=== PATIENT | female | born 1970 | race Caucasian/White ===

== ENCOUNTER 2017-03-10 19:06 | Emergency (ER) | payer SELFPAY ==
[~2017-03-10] VITALS: Ht 162.6 cm; Wt 81.6 kg
[~2017-03-10 19:06] MED LIST: ALB0.5V IH; AZIT250T5 PO; CEFD300C3 PO; CETI10CA PO; CIPR500T4 PO; DOXY100C2 PO; FLUT9.9S NS; HYDR1TAB66 PO; LORA1TAB59 PO; METH4TAB PO; MOME0.244 IH; MONT10TA21 PO; OXYC-12 PO; OXYC1TAB87 PO; PRD20T PO; PROVENTIL INHALER IH; RT-SYMBINH IH
[2017-03-10] MEDS ORDERED: RT-ALBUTEROL/IPRATROPIUM 3 ML (DUONEB) VIAL INH ONE (19:30)
[2017-03-10] MEDS ORDERED: RT-ALBUTEROL SULF 2.5 MG/3 ML PRE-MIX VIAL ONE (19:39)
[2017-03-10] MEDS ORDERED: RT-ALBUTEROL SULF 2.5 MG/3 ML PRE-MIX VIAL INH STA (19:43)
[2017-03-10 19:49] LABS: BASOPHILS % (AUTO) 0 % (0-10); EOSINOPHILS # (AUTO) 0.8 10^3/uL (0.0-0.3); EOSINOPHILS % (AUTO) 7 % (0-10); LYMPHOCYTES # (AUTO) 3.4 X 10^3 (1.0-4.0); LYMPHOCYTES % (AUTO) 30 % (12-44); MEAN CORPUSCULAR HEMOGLOBIN 29 PG (25-34); MEAN CORPUSCULAR HGB CONC 32 G/DL (32-36); MEAN CORPUSCULAR VOLUME 91 FL (80-99); MEAN PLATELET VOLUME 10.3 FL (7.4-10.4); MONOCYTES # (AUTO) 1.1 X 10^3 (0.0-1.0); MONOCYTES % (AUTO) 10 % (0-12); NEUTROPHILS % (AUTO) 54 % (42-75); PLATELET COUNT 304 10^3/uL (130-400); RED BLOOD COUNT 4.31 10^6/uL (4.35-5.85); RED CELL DISTRIBUTION WIDTH 14.2 % (10.0-14.5); WHITE BLOOD COUNT 11.3 10^3/uL (4.3-11.0)
--- NOTE | 2017-03-10 19:50 | ED General ---
General Chief Complaint: Abdominal/GI Problems Stated Complaint: NAUSEA Nursing Triage Note: pt ambulated to room. pt states she is feeling dizzy and lightheaded. pt states it feels like she has an inner ear infection. Pt states she has been feeling this way for months. no vomiting noted at this time. pt states her feet feel hot and her hands have been going numb. Nursing Sepsis Screen: No Definite Risk Source of Information: Patient Exam Limitations: No Limitations History of Present Illness Time Seen by Provider: 19:15 Initial Comments Here with diffuse complaints that include feeling dizzy and lightheaded and warmth to her face with watery eyes and runny nose. She also complains of nausea. Complains of bilateral leg warmth. Complains of burning sensation to the center of her chest with deep breathing. She is on Claritin for her allergies. Timing/Duration: 2-3 Days Severity: Moderate Associated Systoms: No Chest Pain, Cough, No Fever/Chills, Malaise, No Nausea/ Vomiting Allergies and Home Medications Allergies Coded Allergies: hydrocodone (Unverified Allergy, Unknown, 06/15/15) Home Medications Albuterol 2.5 Mg/0.5 Ml Nebu, 2.5 ML IH BID, (Reported) Budesonide/Formoterol Fumarate 1 Puff Puff, 2 PUFF IH BID, (Reported) Cefdinir 300 Mg Capsule, 300 MG PO BID, #30 Prescribed by: DIA HICKMAN on 06/03/16640 Ciprofloxacin HCl 500 Mg Tablet, 1 TAB PO BID, #20 (Reported) Fluticasone Propionate 9.9 Ml [place].susp, 2 SPRAYS NS BID, #1 Prescribed by: DIA HICKMAN on 06/03/16640 Loratadine/Pseudoephedrine 1 Each Tab.er.12h, 1 EACH PO BID, #30 Prescribed by: DIA HICKMAN on 06/03/16640 Methylprednisolone 4 Mg Tab.ds.pk, 4 MG PO UD, #1 Prescribed by: DIA HICKMAN on 06/03/16640 Montelukast Sodium 10 Mg Tablet, 10 MG PO DAILY, #30 Prescribed by: DIA HICKMAN on 06/03/16640 [Proventil Inhaler] , 2 PUFF IH DAILY PRN for SHORTNESS OF BREATH Prescribed by: CJ PETERSEN on 10/19/13 0348 Constitutional: see HPI, No chills, No fever EENTM: nose congestion, throat pain, No ear discharge Respiratory: cough, short of breath, wheezing Cardiovascular: see HPI, No edema, No palpitations Gastrointestinal: No abdominal pain, nausea, No vomiting Genitourinary: no symptoms reported Musculoskeletal: see HPI, muscle pain Skin: see HPI, No change in color All Other Systems Reviewed Negative Unless Noted: Yes Past Fxwwhxy-Fgipxt-Wtgztp Hx Patient Social History Alcohol Use: Denies Use Recreational Drug Use: No Smoking Status: Current Everyday Smoker Type Used: Cigarettes 2nd Hand Smoke Exposure: Yes Recent Foreign Travel: No Contact w/Someone Who Travel: No Recent Infectious Disease Expo: No Recent Hopitalizations: No Immunizations Up To Date Tetanus Booster (TDap): Less than 5yrs Date of Pneumonia Vaccine: Nov 01, 2012 Seasonal Allergies Seasonal Allergies: Yes Surgeries HX Surgeries: Yes ( x 4) Surgeries: Section, Orthopedic Respiratory Hx Respiratory Disorders: Yes Respiratory Disorders: Asthma, Chronic Bronchitis, COPD Cardiovascular Hx Cardiac Disorders: No Neurological Hx Neurological Disorders: No Reproductive System Hx Reproductive Disorders: No Genitourinary Hx Genitourinary Disorders: No Gastrointestinal Hx Gastrointestinal Disorders: No Musculoskeletal Hx Musculoskeletal Disorders: Yes (dislocated right knee 10/19/13) Endocrine Hx Endocrine Disorders: No HEENT HX ENT Disorders: No Cancer Hx Cancer: No Psychosocial Hx Psychiatric Problems: No Integumentary HX Skin/Integumentary Disorder: No Blood Transfusions Hx Blood Disorders: No Adverse Reaction to a Blood Tr: No Reviewed Nursing Assessment Reviewed/Agree w Nursing PMH: Yes Family Medical History Significant Family History: No Pertinent Family Hx Family Medial History: History of - respiratory disease (Emphysema) 03 FATHER, Onset:Unknown Physical Exam Vital Signs Vital Sign - Last 12Hours 03/10/17 19:15 Temp 98.5 Pulse 95 Resp 20 B/P (MAP) 185/101 Pulse Ox 98 O2 Delivery Room Air Capillary Refill : Less Than 3 Seconds General Appearance: No Apparent Distress, WD/WN HEENT: PERRL/EOMI, Pharynx Normal Neck: Non Tender, Supple Respiratory: No Respiratory Distress, Wheezing Cardiovascular: Regular Rate, Rhythm, No Murmur Gastrointestinal: Non Tender, Soft Back: Normal Inspection, No CVA Tenderness, No Vertebral Tenderness Extremity: Normal Range of Motion, Non Tender Neurologic/Psychiatric: Alert, Oriented x3 Skin: Normal Color, Warm/Dry Progress/Results/Core Measures Results/Orders Lab Results Laboratory Tests Test 03/10/17 19:38 Range/Units White Blood Count 11.3 H 4.3-11.0 10^3/uL Red Blood Count 4.31 L 4.35-5.85 10^6/uL Hemoglobin 12.6 11.5-16.0 G/DL Hematocrit 39 35-52 % Mean Corpuscular Volume 91 80-99 FL Mean Corpuscular Hemoglobin 29 25-34 PG Mean Corpuscular Hemoglobin Concent 32 32-36 G/DL Red Cell Distribution Width 14.2 10.0-14.5 % Platelet Count 304 130-400 10^3/uL Mean Platelet Volume 10.3 7.4-10.4 FL Neutrophils (%) (Auto) 54 42-75 % Lymphocytes (%) (Auto) 30 12-44 % Monocytes (%) (Auto) 10 0-12 % Eosinophils (%) (Auto) 7 0-10 % Basophils (%) (Auto) 0 0-10 % Neutrophils # (Auto) 6.0 1.8-7.8 X 10^3 Lymphocytes # (Auto) 3.4 1.0-4.0 X 10^3 Monocytes # (Auto) 1.1 H 0.0-1.0 X 10^3 Eosinophils # (Auto) 0.8 H 0.0-0.3 10^3/uL Basophils # (Auto) 0.0 0.0-0.1 10^3/uL D-Dimer 0.33 0.00-0.49 UG/ML Sodium Level 138 135-145 MMOL/L Potassium Level 3.8 3.6-5.0 MMOL/L Chloride Level 106 98-107 MMOL/L Carbon Dioxide Level 20 L 21-32 MMOL/L Anion Gap 12 5-14 MMOL/L Blood Urea Nitrogen 14 7-18 MG/DL Creatinine 0.88 0.60-1.30 MG/DL Estimat Glomerular Filtration Rate > 60 BUN/Creatinine Ratio 16 Glucose Level 110 H 70-105 MG/DL Calcium Level 8.9 8.5-10.1 MG/DL Total Bilirubin 0.3 0.1-1.0 MG/DL Aspartate Amino Transf (AST/SGOT) 14 5-34 U/L Alanine Aminotransferase (ALT/SGPT) 13 0-55 U/L Alkaline Phosphatase 70 40-136 U/L Troponin I < 0.30 <0.30 NG/ML C-Reactive Protein High Sensitivity 0.36 0.00-0.50 MG/DL Total Protein 6.6 6.4-8.2 G/DL Albumin 3.9 3.2-4.5 G/DL Thyroid Stimulating Hormone (TSH) 4.51 0.35-4.94 UIU/ML My Orders Orders - ANGELA SEALS MD Cbc With Automated Diff (03/10/17:) Comprehensive Metabolic Panel (03/10/17:) Hs C Reactive Protein (03/10/17) Fibrin Degradation Products (03/10/17) Thyroid Stimulating Hormone (03/10/17) Troponin I (03/10/17) Chest Pa/Lat (2 View) (03/10/17:) Saline Lock/Iv-Start (03/10/17:) Ekg Tracing (03/10/17:) Albuterol/Ipra Inhalation Soln (Duoneb I (03/10/17 19:30) Svn Sm Volume Nebulizer Rt-Rfs (03/10/17 19:27) Albuterol Pre-Mix Nebs (Rt) (Proventil P (03/10/17 19:43) Svn Sm Volume Nebulizer Rt-Rfs (03/10/17 19:43) Albuterol Pre-Mix Nebs (Rt) (Proventil P (03/10/17 19:39) Prednisone Tablet (Deltasone Tablet) (03/10/17 20:15) Medications Given in ED Current Medications Medications Dose Ordered Sig/Yahir Route Start Time Stop Time Status Last Admin Dose Admin Albuterol/ Ipratropium 3 ml ONCE ONCE INH 03/10/17 19:30 03/10/17 19:31 DC 03/10/17 19:38 3 ML Prednisone 40 mg ONCE ONCE PO 03/10/17 20:15 03/10/17 20:16 DC 03/10/17 20:17 40 MG Vital Signs/I&O Vital Sign - Last 12Hours 03/10/17 03/10/17 03/10/17 19:15 19:38 19:45 Temp 98.5 Pulse 95 Resp 20 B/P (MAP) 185/101 Pulse Ox 98 100 O2 Delivery Room Air Room Air Room Air Blood Pressure Mean: 129 Progress Note : Progress Note Seen and evaluated. IV, labs, chest x-ray, EKG, DuoNeb and albuterol nebulizer treatments given. Monitor patient. Prednisone 40 mg by mouth given. Chest x- ray, labs and EKG do not show any significant findings. This appears to be more COPD and upper respiratory infection related. This was discussed with the patient. She agrees. Discharged home with return precautions. Patient verbalize understanding instructions and agreement with plan. ECG Initial ECG Impression Date: Mar 10, 2017 Initial ECG Impression Time: 20:00 Initial ECG Rate: 87 Initial ECG Rhythm: Normal Sinus Initial ECG Impression: Normal Initial ECG Comparisson: No Previous ECG Available Comment Sinus rhythm with normal axis. No evidence of ST elevation [place]. No previous available for comparison. Interpreted by me. Diagnostic Imaging Diagonstic Imaging: Xray Plain Films/CT/US/NM/MRI: chest Comments VIA [facility]. [place], [place] NAME: DONN HIGH [facility] REC#: [id number] PT STATUS: REG ER : 1970 PHYSICIAN: ANGELA SEALS MD ADMIT DATE: 03/10/17/ER Draft Date of Exam:03/10/17 CHEST PA/LAT (2 VIEW) INDICATION: Fever and chills. COMPARISON: 06/15/2015 FINDINGS: Two views of the chest were obtained. Heart size is normal. The pulmonary vessels appear unremarkable. There is no pneumothorax, mediastinal widening or pleural fluid demonstrated. The lungs are clear. The osseous structures appear unremarkable. IMPRESSION: Negative chest Dictated on workstation # [id number] Dict: 03/10/171955 Trans: 03/10/171957 QUINTIN [id number] Interpreted by: NITA CASTRO DO Electronically signed by: Departure Impression Impression: Primary Impression: Upper respiratory infection Qualified Codes: J06.9 - Acute upper respiratory infection, unspecified Additional Impression: COPD exacerbation Disposition: 01 HOME, SELF-CARE Condition: Improved Departure-Patient Inst. Decision time for Depature: 20:57 Referrals: YADY HUERTAS MD (PCP/Family) Primary Care Physician Patient Instructions: Bacterial Upper Respiratory Infection, Adult (DC), Exacerbation of COPD (DC) Add. Discharge Instructions: All discharge instructions reviewed with patient and/or family. Voiced understanding. Take medications as directed. You may take ibuprofen as needed for discomfort. You may take Tylenol as well per package directions. You may use Tylenol PM at nighttime if needed for sleep and allergy symptoms. Do not exceed more than 4000 mg of Tylenol in 24 hours. Follow-up with your early this week for recheck and further evaluation as needed. Scripts Prednisone (Prednisone) 20 Mg Tab 40 MG PO DAILY, #10 TAB 0 Refills Prov: ANGELA SEALS MD 03/10/17 ANGELA SEALS MD Mar 10, 2017 19:50
--- NOTE | 2017-03-10 19:58 | Diagnostic Imaging Report ---
INDICATION: Fever and chills. COMPARISON: 06/15/2015 FINDINGS: Two views of the chest were obtained. Heart size is normal. The pulmonary vessels appear unremarkable. There is no pneumothorax, mediastinal widening or pleural fluid demonstrated. The lungs are clear. The osseous structures appear unremarkable. IMPRESSION: Negative chest Dictated by: Dictated on workstation # [id number]
[2017-03-10 20:06] LABS: ALANINE AMINOTRANSFERASE 13 U/L (0-55); ALBUMIN 3.9 G/DL (3.2-4.5); ANION GAP 12 MMOL/L (5-14); ASPARTATE AMINO TRANSFERASE 14 U/L (5-34); BILIRUBIN,TOTAL 0.3 MG/DL (0.1-1.0); BLOOD UREA NITROGEN 14 MG/DL (7-18); BUN/CREATININE RATIO 16; CALCIUM 8.9 MG/DL (8.5-10.1); CARBON DIOXIDE 20 MMOL/L (21-32); CHLORIDE 106 MMOL/L (98-107); CREATININE SERUM 0.88 MG/DL (0.60-1.30); GFR ESTIMATED > 60; GLUCOSE 110 MG/DL (70-105); POTASSIUM 3.8 MMOL/L (3.6-5.0); SODIUM 138 MMOL/L (135-145); TOTAL PROTEIN 6.6 G/DL (6.4-8.2); hs C REACTIVE PROTEIN 0.36 MG/DL (0.00-0.50)
[2017-03-10] MEDS ORDERED: predniSONE 20 MG TAB PO ONE (20:15)
[2017-03-10 20:26] LABS: THYROID STIMULATING HORMONE 4.51 UIU/ML (0.35-4.94); TROPONIN I < 0.30 NG/ML (<0.30)
[2017-03-10] MEDS ORDERED: PRD20T PO (20:58)
[2017-03-10 21:13] VITALS: BP 155/86
== END 2017-03-10 21:13 | disposition home or self-care (01) ==
LOC: EDUNIT# 19:06 → ER 19:08
DX: J06.9 Acute upper respiratory infection, unspecified (principal); J44.1 Chronic obstructive pulmonary disease with (acute) exacerbation; J45.909 Unspecified asthma, uncomplicated; F17.210 Nicotine dependence, cigarettes, uncomplicated
CPT/HCPCS: 36415; 71020; 80053; 84443; 84484; 85025; 85379; 86141; 93005; 94640

== ENCOUNTER 2021-07-01 20:10 | Emergency (ER) | payer SELFPAY ==
[~2021-07-01] VITALS: Ht 160 cm; Wt 77.0 kg
[~2021-07-01 20:10] MED LIST changes: +AZIT250T12 PO; -AZIT250T5 PO; -CIPR500T4 PO; +CIPR500T5 PO
[2021-07-01] MEDS ORDERED: RT-ALBUTEROL/IPRATROPIUM 3 ML (DUONEB) VIAL ONE (20:50)
[2021-07-01] MEDS ORDERED: RT-ALBUTEROL SULF 2.5 MG/3 ML PRE-MIX VIAL ONE (20:52)
[2021-07-01] MEDS ORDERED: RT-ALBUTEROL/IPRATROPIUM 3 ML (DUONEB) VIAL INH ONE (21:00)
[2021-07-01 21:05] LABS: BASOPHILS # (AUTO) 0.1 10^3/uL (0.0-0.1); BASOPHILS % (AUTO) 1 % (0-10); EOSINOPHILS % (AUTO) 10 % (0-10); HEMATOCRIT 45 % (35-52); HEMOGLOBIN 14.8 g/dL (11.5-16.0); LYMPHOCYTES # (AUTO) 3.1 10^3/uL (1.0-4.0); LYMPHOCYTES % (AUTO) 30 % (12-44); MEAN CORPUSCULAR HEMOGLOBIN 32 pg (25-34); MEAN CORPUSCULAR HGB CONC 33 g/dL (32-36); MEAN CORPUSCULAR VOLUME 96 fL (80-99); MEAN PLATELET VOLUME 10.2 fL (9.0-12.2); MONOCYTES # (AUTO) 0.8 10^3/uL (0.0-1.0); MONOCYTES % (AUTO) 7 % (0-12); NEUTROPHILS # (AUTO) 5.4 10^3/uL (1.8-7.8); NEUTROPHILS % (AUTO) 52 % (42-75); PLATELET COUNT 251 10^3/uL (130-400); WHITE BLOOD COUNT 10.3 10^3/uL (4.3-11.0)
--- NOTE | 2021-07-01 21:06 | ED Dyspnea ---
General Stated Complaint: SOB, HEADACHE Source of Information: Patient Exam Limitations: No Limitations (HUBERT HARPER APRN) History of Present Illness Date Seen by Provider: Jul 01, 2021 Time Seen by Provider: 20:40 Initial Comments To ER with shortness of breath getting worse over the past few days. She has had this for several weeks. She has known asthma and COPD. She does not smoke. She is not oxygen dependent at home. No fevers chills nausea vomiting or other systemic symptoms. 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 Does not have a primary care provider. No recent medication use such as prednisone or antibiotics. She states that typically she can control these flareups of asthma at home and has not had to come to the emergency room for this reason for a couple of years. She has had both Covid vaccinations, Moderna brand. She gets tested at work for Covid weekly and was negative on Sunday of this week. Timing/Duration: Increasing Severity: Moderate Prior Episodes/Possible Cause: No Prior Episodes Associated Symptoms: Wheezing (HUBERT HARPER APRN) Allergies and Home Medications Allergies Coded Allergies: hydrocodone (Unverified Allergy, Unknown, 06/15/15) Patient Home Medication List Home Medication List Reviewed: Yes (HUBERT HARPER APRN) Albuterol (Proventil 0.5% Rt) 2.5 Mg/0.5 Ml Nebu, 2.5 ML IH BID, (Reported) Entered as Reported by: PARESH VICTORIA on 08/14/10 2333 Albuterol Sulfate (Albuterol Sulfate) 2.5 Mg/3 Ml Vial.neb, 2.5 MG INH Q4H PRN for WHEEZING Prescribed by: HUBERT HARPER on 07/01/21 2148 Budesonide/Formoterol Fumarate (Symbicort Common Canister) 1 Puff Puff, 2 PUFF IH BID, (Reported) Entered as Reported by: CJ PETERSEN on 10/19/13 0347 Cefdinir (Cefdinir) 300 Mg Capsule, 300 MG PO BID Prescribed by: DIA HICKMAN on 06/03/16 0641 Ciprofloxacin HCl (Ciprofloxacin HCl) 500 Mg Tablet, 1 TAB PO BID, (Reported) Entered as Reported by: YOGESH HOPSON on 06/03/16 0620 Fluticasone Propionate (Flonase Allergy Relief) 9.9 Ml [place].susp, 2 SPRAYS NS BID Prescribed by: DIA HICKMAN on 06/03/16640 Loratadine/Pseudoephedrine (Claritin-D 12 Hour Tablet) 1 Each Tab.er.12h, 1 EACH PO BID Prescribed by: DIA HICKMAN on 06/03/16640 Methylprednisolone (Medrol) 4 Mg Tab.ds.pk, 4 MG PO UD Prescribed by: DIA HICKMAN on 06/03/16640 Montelukast Sodium (Singulair) 10 Mg Tablet, 10 MG PO DAILY Prescribed by: DIA HICKMAN on 06/03/16640 Prednisone (Prednisone) 20 Mg Tab, 40 MG PO DAILY Prescribed by: ANGELA SEALS on 03/10/172057 Prednisone (Prednisone) 20 Mg Tab, 40 MG PO DAILY Prescribed by: HUBERT HARPER on 07/01/21 214 [Proventil Inhaler] , 2 PUFF IH DAILY PRN for SHORTNESS OF BREATH Prescribed by: CJ PETERSEN on 10/19/13 0348 Review of Systems Review of Systems Constitutional: see HPI EENTM: see HPI Respiratory: see HPI, cough, short of breath, wheezing Cardiovascular: no symptoms reported Genitourinary: no symptoms reported Musculoskeletal: no symptoms reported Skin: no symptoms reported Psychiatric/Neurological: No Symptoms Reported (HUBERT HARPER APRN) Past Jnvufep-Zupjjx-Dhlgui Hx Immunizations Up To Date Tetanus Booster (TDap): Less than 5yrs (HUBERT HARPER APRN) Seasonal Allergies Seasonal Allergies: Yes (HUBERT HARPER APRN) Past Medical History Surgeries: Yes ( x 4) Section, Orthopedic Respiratory: Yes Asthma, Chronic Bronchitis, COPD Currently Using CPAP: No Currently Using BIPAP: No Cardiac: No Neurological: No Reproductive Disorders: No Genitourinary: No Gastrointestinal: No Musculoskeletal: Yes (dislocated right knee 10/19/13) Endocrine: No HEENT: No Cancer: No Psychosocial: No Integumentary: No Blood Disorders: No Adverse Reaction/Blood Tranf: No (HUBERT HARPER APRN) Family Medical History History of - respiratory disease (Emphysema) 03 FATHER, Onset:Unknown No Pertinent Family Hx (HUBERT HARPER APRN) Physical Exam Vital Signs Vital Signs - First Documented 07/01/21 20:41 Temp 36.4 Pulse 105 Resp 24 B/P (MAP) 187/122 (143) Pulse Ox 90 O2 Delivery Room Air (DIA HICKMAN DO) Vital Signs Capillary Refill : (HUBERT HARPER APRN) Height, Weight, BMI Height: 5'4.00" Weight: 180lbs. 0.0oz. 81.103516pg; BMI Method:Stated General Appearance: No Apparent Distress, WD/WN Respiratory: No Respiratory Distress, Decreased Breath Sounds, Wheezing, Other (90 to 93% on room air) Cardiovascular: Regular Rate, Rhythm, Normal Peripheral Pulses Peripheral Pulses: 0 Carotid (R), 0 Carotid (L), 0 Femoral (R), 0 Femoral (L), 0 Dorsalis Pedis (R), 0 Left Dors-Pedis (L), 0 Radial Pulses (R), 0 Radial Pu lses (L) Extremity: Normal Capillary Refill, Normal Inspection Neurologic/Psychiatric: Alert, Oriented x3 Skin: Normal Color, Warm/Dry (HUBERT HARPER APRN) Progress/Results/Core Measures Results/Orders Lab Results Laboratory Tests Test 07/01/21 20:50 Range/Units White Blood Count 10.3 4.3-11.0 10^3/uL Red Blood Count 4.70 3.80-5.11 10^6/uL Hemoglobin 14.8 11.5-16.0 g/dL Hematocrit 45 35-52 % Mean Corpuscular Volume 96 80-99 fL Mean Corpuscular Hemoglobin 32 25-34 pg Mean Corpuscular Hemoglobin Concent 33 32-36 g/dL Red Cell Distribution Width 13.4 10.0-14.5 % Platelet Count 251 130-400 10^3/uL Mean Platelet Volume 10.2 9.0-12.2 fL Immature Granulocyte % (Auto) 0 % Neutrophils (%) (Auto) 52 42-75 % Lymphocytes (%) (Auto) 30 12-44 % Monocytes (%) (Auto) 7 0-12 % Eosinophils (%) (Auto) 10 0-10 % Basophils (%) (Auto) 1 0-10 % Neutrophils # (Auto) 5.4 1.8-7.8 10^3/uL Lymphocytes # (Auto) 3.1 1.0-4.0 10^3/uL Monocytes # (Auto) 0.8 0.0-1.0 10^3/uL Eosinophils # (Auto) 1.0 H 0.0-0.3 10^3/uL Basophils # (Auto) 0.1 0.0-0.1 10^3/uL Immature Granulocyte # (Auto) 0.0 0.0-0.1 10^3/uL Blood Gas Puncture Site LEFT RADIAL Blood Gas Patient Temperature 98.0 Arterial Blood pH 7.39 7.37-7.43 Arterial Blood Partial Pressure CO2 41 35-45 MMHG Arterial Blood Partial Pressure O2 71 L 79-93 MMHG Arterial Blood HCO3 24 23-27 MMOL/L Arterial Blood Total CO2 25.5 21.0-31.0 MMOL/L Arterial Blood Oxygen Saturation 94 94-100 % Arterial Blood Base Excess -0.2 -2.5-2.5 MMOL/L Jesse Test YES-POS Blood Gas Ventilator Setting NO Blood Gas Inspired Oxygen NOT INDICATED Sodium Level 138 135-145 MMOL/L Potassium Level 4.2 3.6-5.0 MMOL/L Chloride Level 108 H 98-107 MMOL/L Carbon Dioxide Level 21 21-32 MMOL/L Anion Gap 9 5-14 MMOL/L Blood Urea Nitrogen 11 7-18 MG/DL Creatinine 0.80 0.60-1.30 MG/DL Estimat Glomerular Filtration Rate 76 BUN/Creatinine Ratio 14 Glucose Level 93 70-105 MG/DL Calcium Level 9.4 8.5-10.1 MG/DL Corrected Calcium 9.4 8.5-10.1 MG/DL Total Bilirubin 0.2 0.1-1.0 MG/DL Aspartate Amino Transf (AST/SGOT) 22 5-34 U/L Alanine Aminotransferase (ALT/SGPT) 21 0-55 U/L Alkaline Phosphatase 66 40-136 U/L B-Type Natriuretic Peptide < 10.0 <100.0 PG/ML Total Protein 6.8 6.4-8.2 GM/DL Albumin 4.0 3.2-4.5 GM/DL SARS-CoV-2 RNA (RT-PCR) Not Detected Not Detecte (DIA HICKMAN DO) Medications Given in ED Current Medications Medications Dose Ordered Sig/Yahir Route Start Time Stop Time Status Last Admin Dose Admin Albuterol Sulfate 10 mg ONCE ONCE INH 07/01/21 21:15 07/01/21 21:16 DC 07/01/21 21:18 10 MG Albuterol/ Ipratropium 3 ml ONCE ONCE INH 07/01/21 21:00 07/01/21 21:01 DC 07/01/21 21:18 3 ML Methylprednisolone Sodium Succinate 125 mg ONCE ONCE IVP 07/01/21 21:15 07/01/21 21:16 DC 07/01/21 21:14 125 MG (DIA HICKMAN DO) Vital Signs/I&O 07/01/21 07/01/21 20:41 22:13 Temp 36.4 Pulse 105 102 Resp 24 20 B/P (MAP) 187/122 (143) 139/94 Pulse Ox 90 97 O2 Delivery Room Air Room Air (DIA HICKMAN DO) Departure Communication (Admissions) 4-states that she is feeling much better, her headache is gone and she feels as though she can breathe easier. Her lung sounds remain diminished with faint wheezing. Her oxygen is 94% on room air with normal respiratory rate and effort. We will put her on some prednisone and more albuterol at home. She has a machine but she believes her albuterol is . (HUBERT HARPER APRN) Impression Primary Impression: Asthma exacerbation Disposition: HOME, SELF-CARE Condition: Stable Departure-Patient Inst. Decision time for Depature: 21:46 (HUBERT HARPER APRN) Referrals: YADY HUERTAS MD (PCP/Family) Primary Care Physician Patient Instructions: Asthma in Adults Scripts Albuterol Sulfate (Albuterol Sulfate) 2.5 Mg/3 Ml Vial.neb 2.5 MG INH Q4H PRN for WHEEZING, #50 EA 1 Refill Prov: HUBERT HARPER APRN 07/01/21 Prednisone (Prednisone) 20 Mg Tab 40 MG PO DAILY, #8 TAB 0 Refills Prov: HUBERT HARPER APRN 07/01/21 ATTENDING PHYSICIAN NOTE: I WAS PHYSICALLY PRESENT ER PHYSICIAN WHEN THIS PATIENT WAS IN ER, BUT I WAS NOT INVOLVED IN DECISION MAKING OR ANY CARE OF THIS PATIENT. (DIA HICKMAN DO) HUBERT HARPER APRN Jul 01, 2021 21:05 DIA HICKMAN DO Jul 02, 2021 02:03
[2021-07-01 21:07] LABS: ABG BASE EXCESS -0.2 MMOL/L (-2.5-2.5); ABG OXYGEN SATURATION 94 % (94-100); ABG PCO2 41 MMHG (35-45); ABG PH 7.39 (7.37-7.43); ABG PO2 71 MMHG (79-93); ABG TCO2 25.5 MMOL/L (21.0-31.0)
[2021-07-01 21:10] LABS: ALLENS TEST YES-POS; INSPIRED O2 NOT INDICATED; VENTILATOR NO
[2021-07-01] MEDS ORDERED: methylPREDNISolone 125 MG (Solu-MEDROL) VIAL IVP ONE (21:15)
[2021-07-01] MEDS ORDERED: RT-ALBUTEROL SULF 2.5 MG/3 ML PRE-MIX VIAL INH ONE (21:15)
[2021-07-01 21:21] LABS: POTASSIUM 4.2 MMOL/L (3.6-5.0)
[2021-07-01 21:22] LABS: CALCIUM 9.4 MG/DL (8.5-10.1)
[2021-07-01 21:23] LABS: TOTAL PROTEIN 6.8 GM/DL (6.4-8.2)
[2021-07-01 21:25] LABS: BILIRUBIN,TOTAL 0.2 MG/DL (0.1-1.0)
[2021-07-01 21:27] LABS: CREATININE SERUM 0.8 MG/DL (0.60-1.30)
[2021-07-01] MEDS ORDERED: PRD20T PO (21:48)
[2021-07-01] MEDS ORDERED: ALBU2.5V4 INH (21:48)
[2021-07-01] MEDS ORDERED: RX-ALBUTEROL NEB 2.5 MG/3 ML PACK #5 IH STA (21:50)
[2021-07-01 22:13] VITALS: BP 139/94
== END 2021-07-01 22:13 | disposition home or self-care (01) ==
LOC: EDUNIT# 20:10 → ER 20:13
DX: J45.901 Unspecified asthma with (acute) exacerbation (principal); Z20.822 Contact with and (suspected) exposure to COVID-19; Z79.52 Long term (current) use of systemic steroids
CPT/HCPCS: 36415; 80053; 82805; 83880; 85025; 87636

== ENCOUNTER 2021-12-24 02:01 | Emergency (ER) | payer OTHER ==
[~2021-12-24] VITALS: Ht 160 cm; Wt 77.6 kg
[~2021-12-24 02:01] MED LIST changes: +ALBU2.5V4 INH
[2021-12-24 02:54] LABS: BASOPHILS # (AUTO) 0.1 10^3/uL (0.0-0.1); BASOPHILS % (AUTO) 1 % (0-10); EOSINOPHILS # (AUTO) 0.6 10^3/uL (0.0-0.3); EOSINOPHILS % (AUTO) 5 % (0-10); HEMATOCRIT 46 % (35-52); HEMOGLOBIN 15.4 g/dL (11.5-16.0); LYMPHOCYTES # (AUTO) 2.3 10^3/uL (1.0-4.0); LYMPHOCYTES % (AUTO) 18 % (12-44); MEAN CORPUSCULAR HEMOGLOBIN 32 pg (25-34); MEAN CORPUSCULAR HGB CONC 33 g/dL (32-36); MEAN CORPUSCULAR VOLUME 95 fL (80-99); MEAN PLATELET VOLUME 10.1 fL (9.0-12.2); MONOCYTES % (AUTO) 7 % (0-12); NEUTROPHILS # (AUTO) 9.1 10^3/uL (1.8-7.8); NEUTROPHILS % (AUTO) 70 % (42-75); PLATELET COUNT 282 10^3/uL (130-400); WHITE BLOOD COUNT 13.1 10^3/uL (4.3-11.0)
[2021-12-24 03:05] LABS: ALBUMIN 4.2 GM/DL (3.2-4.5); CHLORIDE 106 MMOL/L (98-107); INR 0.9 (0.8-1.4); PROTHROMBIN TIME PATIENT 12.9 SEC (12.2-14.7); SODIUM 140 MMOL/L (135-145)
[2021-12-24 03:06] LABS: AMYLASE 51 U/L (25-125)
[2021-12-24 03:07] LABS: CALCIUM 9.5 MG/DL (8.5-10.1)
[2021-12-24 03:08] LABS: GLUCOSE 115 MG/DL (70-105); TOTAL PROTEIN 6.8 GM/DL (6.4-8.2)
[2021-12-24 03:09] LABS: CARBON DIOXIDE 22 MMOL/L (21-32)
[2021-12-24 03:10] LABS: BILIRUBIN,TOTAL 0.2 MG/DL (0.1-1.0)
[2021-12-24 03:11] LABS: ALKALINE PHOSPHATASE 79 U/L (40-136)
[2021-12-24 03:12] LABS: CREATININE SERUM 0.87 MG/DL (0.60-1.30); GFR ESTIMATED 82
[2021-12-24 03:13] LABS: BUN/CREATININE RATIO 14
[2021-12-24 03:14] LABS: ALANINE AMINOTRANSFERASE 18 U/L (0-55)
[2021-12-24 03:15] LABS: LIPASE 20 U/L (8-78)
[2021-12-24] MEDS ORDERED: ONDANSETRON 4 MG/2 ML (SDV) Z0FRAN IVP ONE (03:45)
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
[2021-12-24] MEDS ORDERED: IOHEXOL 350 MG/ML 100 ML (OMNIPAQUE 350) VIAL IV ONE (04:30)
[2021-12-24] MEDS ORDERED: NS 100 ML (IVPB) BAG IV ONE (04:30)
[2021-12-24] MEDS ORDERED: CATHETER FLUSH 10 ML SYR IV PRN (04:30)
[2021-12-24 04:52] LABS: BILIRUBIN,URINE NEGATIVE (NEGATIVE); CLARITY,URINE CLEAR; COLOR,URINE YELLOW; GLUCOSE, URINE (UA) NEGATIVE (NEGATIVE); KETONES,URINE NEGATIVE (NEGATIVE); LEUKOCYTE ESTERASE ,URINE NEGATIVE (NEGATIVE); NITRITE,URINE NEGATIVE (NEGATIVE); PROTEIN,URINE NEGATIVE (NEGATIVE)
[2021-12-24 04:58] LABS: BACTERIA,URINE TRACE /HPF; RBC,URINE 0-2 /HPF; WBC,URINE 0-2 /HPF
[2021-12-24 05:04] LABS: AMPHETAMINE SCREEN, URINE NEGATIVE (NEGATIVE); BARBITURATE SCREEN URINE NEGATIVE (NEGATIVE); BENZODIAZEPINES SCREEN URINE NEGATIVE (NEGATIVE); CANNABINOID SCREEN, URINE POSITIVE (NEGATIVE); COCAINE SCREEN URINE NEGATIVE (NEGATIVE); METHADONE STAT NEGATIVE (NEGATIVE); METHAMPHETAMINE SCREEN URINE S NEGATIVE (NEGATIVE); OPIATE SCREEN URINE NEGATIVE (NEGATIVE); OXYCODONE STAT NEGATIVE (NEGATIVE); PROPOXYPHENE STAT NEGATIVE (NEGATIVE); TRICYCLIC ANTIDEPRESSANTS SCRE NEGATIVE (NEGATIVE)
--- NOTE | 2021-12-24 05:20 | Diagnostic Imaging Report ---
KNEE, LEFT, 3 VIEWS INDICATION: Knee pain COMPARISON: None available. TECHNIQUE: 3 views left knee FINDINGS: No fracture. Alignment is normal. No knee joint effusion, mineralized loose bodies or radiopaque foreign body. IMPRESSION: No acute osseous abnormality. Dictated by: Dictated on workstation # [id number]
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
[2021-12-24] MEDS ORDERED: CYCL10TA25 PO (05:35)
[2021-12-24] MEDS ORDERED: NAPR500T8 PO (05:35)
[2021-12-24 05:37] VITALS: BP 134/91
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
== END 2021-12-24 05:40 | disposition home or self-care (01) ==
LOC: EDUNIT# 02:01 → ER 02:05
DX: S06.0X9A Concussion with loss of consciousness of unspecified duration, initial encounter (principal); S16.1XXA Strain of muscle, fascia and tendon at neck level, initial encounter; R07.89 Other chest pain; M25.562 Pain in left knee; F17.210 Nicotine dependence, cigarettes, uncomplicated; V49.40XA Driver injured in collision with unspecified motor vehicles in traffic accident, initial encounter
CPT/HCPCS: 70450; 71045; 71260; 72125; 72128; 72131; 72170; 73562; 74177; 80053; 80306; 81000; 82150; 83690; 84703; 85025; 85610; 85730; 99284; G0480; 36415; 80320

== ENCOUNTER 2022-03-26 13:40 | Emergency (ER) | payer SELFPAY ==
[~2022-03-26] VITALS: Ht 157 cm; Wt 72.0 kg
[~2022-03-26 13:40] MED LIST changes: +CYCL10TA25 PO; +NAPR500T8 PO
[2022-03-26 14:08] LABS: BASOPHILS # (AUTO) 0.1 10^3/uL (0.0-0.1); BASOPHILS % (AUTO) 1 % (0-10); EOSINOPHILS # (AUTO) 1.1 10^3/uL (0.0-0.3); EOSINOPHILS % (AUTO) 9 % (0-10); HEMATOCRIT 46 % (35-52); HEMOGLOBIN 15.7 g/dL (11.5-16.0); LYMPHOCYTES # (AUTO) 2.5 10^3/uL (1.0-4.0); LYMPHOCYTES % (AUTO) 21 % (12-44); MEAN CORPUSCULAR HEMOGLOBIN 32 pg (25-34); MEAN CORPUSCULAR HGB CONC 34 g/dL (32-36); MEAN CORPUSCULAR VOLUME 95 fL (80-99); MEAN PLATELET VOLUME 10.1 fL (9.0-12.2); MONOCYTES # (AUTO) 0.6 10^3/uL (0.0-1.0); MONOCYTES % (AUTO) 5 % (0-12); NEUTROPHILS # (AUTO) 7.6 10^3/uL (1.8-7.8); NEUTROPHILS % (AUTO) 64 % (42-75); PLATELET COUNT 296 10^3/uL (130-400)
[2022-03-26] MEDS ORDERED: RT-ALBUTEROL/IPRATROPIUM 3 ML (DUONEB) VIAL INH ONE (14:15)
[2022-03-26] MEDS ORDERED: methylPREDNISolone 125 MG (Solu-MEDROL) VIAL IVP ONE (14:15)
[2022-03-26 14:20] LABS: ALBUMIN 4.1 GM/DL (3.2-4.5); POTASSIUM 4.2 MMOL/L (3.6-5.0)
--- NOTE | 2022-03-26 14:20 | ED Cough/URI ---
General Chief Complaint: Respiratory Problems Stated Complaint: HX COPD AND ASTHMA/SOB/FEVER Source: patient Exam Limitations: no limitations (ELINA AGUAYO) History of Present Illness Date Seen by Provider: Mar 26, 2022 Time Seen by Provider: 14:17 Initial Comments Patient is a 51 year old with asthma/copd that presents for SOB. She states she has been having symptoms on and off for over a month and states she is worse when she wakes up. Right now she states she does not have "any symptoms" but earlier she was very short of breath. She did use her inhaler, and on March 08 she was prescribed Doxycycline, prednisone and zyrtec for symptomatic relief from urgent care. She denies chest pain, weakness, vomiting. Severity/Quality: moderate Associated Symptoms: cough (ELINA AGUAYO) Allergies and Home Medications Allergies Coded Allergies: hydrocodone (Unverified Allergy, Unknown, 06/15/15) Patient Home Medication List Home Medication List Reviewed: Yes (ELINA AGUAYO) Albuterol Sulfate (Proair Hfa) 1 Puff Puff, 2 PUFF IH Q4H Prescribed by: Milan Aguayo on 03/26/22 1519 Cyclobenzaprine HCl (Cyclobenzaprine HCl) 10 Mg Tablet, 10 MG PO Q8H PRN for SPASMS Prescribed by: DIA HICKMAN on 12/24/21 0535 Naproxen (Naproxen) 500 Mg Tablet.dr, 500 MG PO BID Prescribed by: DIA HICKMAN on 12/24/21 0535 Prednisone (Prednisone) 20 Mg Tab, 20 MG PO BID Prescribed by: Milan Aguayo on 03/26/22 1519 Review of Systems Review of Systems Constitutional: malaise EENTM: no symptoms reported Respiratory: cough, short of breath Cardiovascular: no symptoms reported Gastrointestinal: no symptoms reported Genitourinary: no symptoms reported Musculoskeletal: no symptoms reported Skin: no symptoms reported (ELINA AGUAYO) Past Ekpsacy-Rhefzz-Jtdudq Hx Patient Social History Tobacco Use?: No Use of E-Cig and/or Vaping dev: No Substance use?: No Alcohol Use?: No Pt feels they are or have been: No (ELINA AGUAYO) Immunizations Up To Date Tetanus Booster (TDap): Less than 5yrs First/Initial COVID19 Vaccinat: 2020 Second COVID19 Vaccination Jose Carlos: 2020 (ELINA AGUAYO) Seasonal Allergies Seasonal Allergies: Yes (ELINA AGUAYO) Past Medical History Surgery/Hospitalization HX: RT KNEE REPLACEMENT, TUBAL LIGATION, C SECTION X4 COPD, ASTHMA (SHE THINKS) Surgeries: Yes ( x 4) Section, Orthopedic, Tubal Ligation Respiratory: Yes Asthma, Chronic Bronchitis, COPD Currently Using CPAP: No Currently Using BIPAP: No Cardiac: No Neurological: No Reproductive Disorders: No Genitourinary: No Gastrointestinal: No Musculoskeletal: Yes (dislocated right knee 10/19/13) Endocrine: No HEENT: No Cancer: No Psychosocial: No Integumentary: No Blood Disorders: No Adverse Reaction/Blood Tranf: No (ELINA AGUAYO) Family Medical History History of - respiratory disease (Emphysema) 03 FATHER, Onset:Unknown No Pertinent Family Hx SOCIAL HISTORY: -SMOKES 1 PPD -DENIES ETOH USE -DENIES DRUG USE PAST SURGICAL HISTORY: - X 4 -BILATERAL TUBAL LIGATION -DENTAL SURGERY -RIGHT KNEE SCOPE/ACD AND MEDIAL MENISCUS REPAIR 11/[address] PADILLA -RIGHT TOTAL KNEE REPLACEMENT (ELINA AGUAYO) Physical Exam Vital Signs - First Documented 03/26/22 03/26/22 13:45 14:37 Temp 36.1 Pulse 112 Resp 20 B/P (MAP) 161/99 (119) Pulse Ox 92 O2 Delivery Room Air O2 Flow Rate 2.00 (RODGER FAN MD) Capillary Refill : (ELINA AGUAYO) Height: 5'4.00" Weight: 180lbs. 0.0oz. 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 x 3 Skin: normal color, warm/dry (ELINA AGUAYO) Progress/Results/Core Measures Suspected Sepsis SIRS Temperature: Pulse: Respiratory Rate: Laboratory Tests 03/26/22 13:57: White Blood Count 12.0H Blood Pressure / Mean: Laboratory Tests 03/26/22 13:57: Creatinine 0.95, Platelet Count 296, Total Bilirubin 0.6 (ELINA AGUAYO) Results/Orders Lab Results Laboratory Tests Test 03/26/22 13:48 03/26/22 13:57 Range/Units Influenza Type A (RT-PCR) Not Detected Not Detecte Influenza Type B (RT-PCR) Not Detected Not Detecte SARS-CoV-2 RNA (RT-PCR) Not Detected Not Detecte White Blood Count 12.0 H 4.3-11.0 10^3/uL Red Blood Count 4.91 3.80-5.11 10^6/uL Hemoglobin 15.7 11.5-16.0 g/dL Hematocrit 46 35-52 % Mean Corpuscular Volume 95 80-99 fL Mean Corpuscular Hemoglobin 32 25-34 pg Mean Corpuscular Hemoglobin Concent 34 32-36 g/dL Red Cell Distribution Width 12.9 10.0-14.5 % Platelet Count 296 130-400 10^3/uL Mean Platelet Volume 10.1 9.0-12.2 fL Immature Granulocyte % (Auto) 0 % Neutrophils (%) (Auto) 64 42-75 % Lymphocytes (%) (Auto) 21 12-44 % Monocytes (%) (Auto) 5 0-12 % Eosinophils (%) (Auto) 9 0-10 % Basophils (%) (Auto) 1 0-10 % Neutrophils # (Auto) 7.6 1.8-7.8 10^3/uL Lymphocytes # (Auto) 2.5 1.0-4.0 10^3/uL Monocytes # (Auto) 0.6 0.0-1.0 10^3/uL Eosinophils # (Auto) 1.1 H 0.0-0.3 10^3/uL Basophils # (Auto) 0.1 0.0-0.1 10^3/uL Immature Granulocyte # (Auto) 0.1 0.0-0.1 10^3/uL Sodium Level 141 135-145 MMOL/L Potassium Level 4.2 3.6-5.0 MMOL/L Chloride Level 106 98-107 MMOL/L Carbon Dioxide Level 23 21-32 MMOL/L Anion Gap 12 5-14 MMOL/L Blood Urea Nitrogen 10 7-18 MG/DL Creatinine 0.95 0.60-1.30 MG/DL Estimat Glomerular Filtration Rate 73 BUN/Creatinine Ratio 11 Glucose Level 104 70-105 MG/DL Calcium Level 9.4 8.5-10.1 MG/DL Corrected Calcium 9.3 8.5-10.1 MG/DL Total Bilirubin 0.6 0.1-1.0 MG/DL Aspartate Amino Transf (AST/SGOT) 27 5-34 U/L Alanine Aminotransferase (ALT/SGPT) 21 0-55 U/L Alkaline Phosphatase 94 40-136 U/L C-Reactive Protein High Sensitivity 0.53 H 0.00-0.50 MG/DL Total Protein 7.3 6.4-8.2 GM/DL Albumin 4.1 3.2-4.5 GM/DL (RODGER FAN MD) My Orders Orders - RODGER FAN MD Covid 19 Inhouse Test (03/26/22 13:44) Influenza A And B By Pcr (03/26/22 13:44) Ed Iv/Invasive Line Start (03/26/22 13:46) Cbc With Automated Diff (03/26/22 13:46) Comprehensive Metabolic Panel (03/26/22 13:46) Hs C Reactive Protein (03/26/22 13:46) (RODGER FAN MD) Medications Given in ED Current Medications Medications Dose Ordered Sig/Yahir Route Start Time Stop Time Status Last Admin Dose Admin Albuterol/ Ipratropium 3 ml ONCE ONCE INH 03/26/22 14:15 03/26/22 14:16 DC 03/26/22 14:33 3 ML Methylprednisolone Sodium Succinate 125 mg ONCE ONCE IVP 03/26/22 14:15 03/26/22 14:16 DC 03/26/22 14:45 125 MG (RODGER FAN MD) Vital Signs/I&O 03/26/22 03/26/22 03/26/22 13:45 14:37 15:29 Temp 36.1 Pulse 112 92 Resp 20 20 B/P (MAP) 161/99 (119) 129/98 Pulse Ox 92 95 98 O2 Delivery Room Air Nasal Cannula Room Air O2 Flow Rate 2.00 (RODGER FAN MD) Vital Signs/I&O Capillary Refill : (ELINA AGUAYO) Departure Communication (Admissions) Patient is afebrile, non-toxic and in no distress. Patient remains asymptomatic while in the emergency room. She did take a nap and did not have any difficulty waking up for shortness of breath. Chest x-ray is unremarkable. Lab work is reassuring. No evidence or suspicion of AMI, PE, myocarditis, pericarditis, endocarditis, dissection or other emergent condition at this point. I did recommend the patient follow-up closely with her primary care doctor for better control of her asthma but at this time I do not feel that admission or further intervention is indicated. Patient is in agreement to the care plan and will return here if worsening symptoms. (ELINA AGUAYO) Impression Primary Impression: Asthma exacerbation Additional Impression: Acute bronchitis Disposition: HOME, SELF-CARE Condition: Stable Departure-Patient Inst. Decision time for Depature: 15:18 (ELINA AGUAYO) Referrals: YADY HUERTAS MD (PCP/Family) Primary Care Physician Patient Instructions: Asthma, Adult (DC) Scripts Prednisone (Prednisone) 20 Mg Tab 20 MG PO BID for 5 Days, #10 TAB Take 3 tabs(60mg)daily, decrease by 1/2 tab(10mg)daily. Prov: ELINA AGUAYO 03/26/22 Albuterol Sulfate (PROAIR HFA) 1 Puff Puff 2 PUFF IH Q4H for Cough for 7 Days, #1 EA 1 PUFF = 90 MCG Prov: ELINA AGUAYO 03/26/22 ATTENDING PHYSICIAN NOTE: I was physically present as attending physician in the emergency department during the care of this patient. I placed initial orders based off chief complaint and triage notes. Care was then assumed by MESSI Roberts. I was not otherwise directly involved in the decision making or delivery of care for this patient. (RODGER FAN MD) ELINA AGUAYO Mar 26, 2022 14:20 RODGER FAN MD Mar 26, 2022 19:36
[2022-03-26 14:21] LABS: CALCIUM 9.4 MG/DL (8.5-10.1)
[2022-03-26 14:22] LABS: TOTAL PROTEIN 7.3 GM/DL (6.4-8.2)
[2022-03-26 14:24] LABS: BILIRUBIN,TOTAL 0.6 MG/DL (0.1-1.0)
[2022-03-26 14:26] LABS: CREATININE SERUM 0.95 MG/DL (0.60-1.30)
--- NOTE | 2022-03-26 14:50 | Diagnostic Imaging Report ---
INDICATION: Shortness of breath. COMPARISON: 12/24/2021. FINDINGS: There is no focal consolidation, failure pattern, effusion or pneumothorax. Cardiomediastinal and hilar contours are stable and unremarkable given apical lordotic radiographic orientation. IMPRESSION: Stable unremarkable frontal chest. Dictated by: Dictated on workstation # [id number]
[2022-03-26] MEDS ORDERED: RT-ALBUINH IH (15:19)
[2022-03-26] MEDS ORDERED: PRD20T PO (15:19)
[2022-03-26 15:29] VITALS: BP 129/98
== END 2022-03-26 15:29 | disposition home or self-care (01) ==
LOC: EDUNIT# 13:40 → ER 13:42
DX: J44.9 Chronic obstructive pulmonary disease, unspecified (principal)
CPT/HCPCS: 36415; 71045; 80053; 85025; 86141; 87636; 94640

== ENCOUNTER 2023-01-23 18:29 | Emergency (ER) | payer SELFPAY ==
[~2023-01-23] VITALS: Ht 160 cm; Wt 81.6 kg
[~2023-01-23 18:29] MED LIST changes: +ALBU8.5H6 IH; +MONT-47 PO; -MONT10TA21 PO
[2023-01-23] MEDS ORDERED: LACTATED RINGERS 1,000 ML IV ONE (18:45)
[2023-01-23] MEDS ORDERED: RT-ALBUTEROL/IPRATROPIUM 3 ML (DUONEB) VIAL INH ONE (18:45)
[2023-01-23] MEDS ORDERED: RT-ALBUTEROL SULF 2.5 MG/3 ML PRE-MIX VIAL INH STA (18:45)
[2023-01-23] MEDS ORDERED: CEFEPIME INJECTION 1,000 MG in NS (IVPB) 50 ML IV ONE (18:45)
[2023-01-23] MEDS ORDERED: methylPREDNISolone 125 MG (Solu-MEDROL) VIAL IV STA (18:45)
--- NOTE | 2023-01-23 19:01 | ED Respiratory ---
General Chief Complaint: Respiratory Problems Stated Complaint: RESPITORY HARD TIME BREATHING Nursing Triage Note: PT AMB TO ED BY POV WITH C/O SOB. PT REPORTS COUGH AND CONGESTION X 1 WEEK, DIFFICULTY BREATHING BEGINNING YESTERDAY. REPORTS PAIN WHEN TAKING DEEP BREATH AND PAIN IN BACK WHEN COUGHING. REPORTS INTERMITTENT CP. PT UNABLE TO LAY FLAT. Source: patient History of Present Illness Date Seen by Provider: Jan 23, 2023 Time Seen by Provider: 18:45 Initial Comments PT ARRIVES VIA POV FROM HOME--DROVE SELF HERE PT STATE SHE HAS NOT FELT WELL FOR THE LAST COUPLE OF WEEKS--NO SPECIFIC COMPLAINTS HAS FELT WORSE FOR THE LAST WEEK SHE HAS COPD, AND HAS ALBUTEROL INHALER ( NO SPACER) AND ALBUTEROL NEBULIZER-- SHE USES BOTH OF THEM EVERY 4 HOURS EVERY SINGLE DAY. 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 SHE HAS NOT HAD PNEUMONIA VACCINE. PCP: DR. HUERTAS, AND SAW DR. DE ONE TIME--[facility] Allergies and Home Medications Allergies Coded Allergies: hydrocodone (Unverified Allergy, Unknown, 06/15/15) Patient Home Medication List Home Medication List Reviewed: Yes Albuterol Sulfate (Ventolin Hfa) 1 Puff Puff, 2 PUFF IH Q4H Prescribed by: Milan Aguayo on 03/26/22 151 Azithromycin (Zithromax) 500 Mg Tablet, 500 MG PO DAILY Prescribed by: DIA HICKMAN on 01/23/232043 Benzonatate (Tessalon Perles) 100 Mg Capsule, 200 MG PO TID Prescribed by: DIA HICKMAN on 01/23/232043 Budesonide (Pulmicort) 1 Mg/2 Ml Ampul.neb, 1 MG IH BID Prescribed by: DIA HICKMAN on 01/23/232043 Cefdinir (Cefdinir) 300 Mg Capsule, 300 MG PO BID Prescribed by: DIA HICKMAN on 01/23/232043 Cyclobenzaprine HCl (Cyclobenzaprine HCl) 10 Mg Tablet, 10 MG PO Q8H PRN for SPASMS Prescribed by: DIA HICKMAN on 12/24/21534 Guaifenesin/Dextromethorphan (Mucinex Dm ER 1,200-60 mg Tab) 1,200 Mg-60 Mg Tbmp.12hr, 1 EACH PO BID Prescribed by: DIA HICKMAN on 01/23/232043 Methylprednisolone (Medrol) 4 Mg Tab.ds.pk, 4 MG PO UD Prescribed by: DIA HICKMAN on 01/23/232043 Naproxen (Naproxen) 500 Mg Tablet.dr, 500 MG PO BID Prescribed by: DIA HICKMAN on 12/24/21534 Prednisone (Prednisone) 20 Mg Tab, 20 MG PO BID Prescribed by: Milan Aguayo on 03/26/22 1519 Review of Systems Review of Systems Constitutional: see HPI, fever EENTM: nose congestion Respiratory: see HPI, cough, dyspnea on exertion, orthopnea, short of breath, wheezing Cardiovascular: see HPI, chest pain Gastrointestinal: no symptoms reported Genitourinary: no symptoms reported Musculoskeletal: see HPI, back pain, other (BODY ACHES) Skin: no symptoms reported Psychiatric/Neurological: See HPI, Headache Hematologic/Lymphatic: No Symptoms Reported Immunological/Allergic: no symptoms reported Past Udnkukp-Icjizm-Fxrijn Hx Patient Social History Tobacco Use?: Yes Tobacco type used: Cigarettes Smoking Status: Current Everyday Smoker Use of E-Cig and/or Vaping dev: No Substance use?: No Alcohol Use?: No Pt feels they are or have been: No Immunizations Up To Date Tetanus Booster (TDap): Less than 5yrs Influenza Vaccine Up-to-Date: Yes; Up-to-Date First/Initial COVID19 Vaccinat: 2020 Second COVID19 Vaccination Jose Carlos: 2020 Third COVID19 Vaccination Date: 2020 Seasonal Allergies Seasonal Allergies: Yes Past Medical History Surgery/Hospitalization HX: RT KNEE REPLACEMENT, TUBAL LIGATION, C SECTION X4 COPD, ASTHMA (SHE THINKS) Surgeries: Yes ( x 4) Section, Joint Replacement, Orthopedic, Tubal Ligation Respiratory: Yes Asthma, Chronic Bronchitis, COPD Currently Using CPAP: No Currently Using BIPAP: No Cardiac: No Neurological: No Reproductive Disorders: No Genitourinary: No Gastrointestinal: No Musculoskeletal: Yes (dislocated right knee 10/19/13; RIGHT KNEE REPLACEMENT) Endocrine: No HEENT: No Cancer: No Psychosocial: No Integumentary: No Blood Disorders: No Adverse Reaction/Blood Tranf: No Family Medical History History of - respiratory disease (Emphysema) 03 FATHER, Onset:Unknown No Pertinent Family Hx SOCIAL HISTORY: -SMOKES 1 PPD -DENIES ETOH USE -DENIES DRUG USE PAST SURGICAL HISTORY: - X 4 -BILATERAL TUBAL LIGATION -DENTAL SURGERY -RIGHT KNEE SCOPE/ACD AND MEDIAL MENISCUS REPAIR 11/[address] PADILLA -RIGHT TOTAL KNEE REPLACEMENT Physical Exam Vital Signs - First Documented 01/23/23 01/23/23 18:34 18:45 Temp 36.8 Pulse 102 Resp 22 B/P (MAP) 146/93 (110) Pulse Ox 95 O2 Delivery Room Air O2 Flow Rate 2.00 Capillary Refill : Less Than 3 Seconds Height: 5'4.00" Weight: 180lbs. 0.0oz. 81.369598ew; 31.00 BMI Method:Stated General Appearance: WD/WN, other (ANXIOUS, TALKS RAPIDLY IN FULL SENTENCES,BUT IS MILDLY DYSPNEIC, SITTING UP WITH LEGS CROSSED. 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, no motor/sensory deficits, alert, oriented x 3 Skin: normal color, warm/dry Focused Exam Sepsis Stage: Ruled Out Reason for ruling out sepsis: DOES NOT MEET CRITERIA Possible Source: Pulmonary Lactate Level 01/23/23 19:05: Lactic Acid Level 1.35 Time of Focused Exam: 20:30 Respiratory: Normal Breath Sounds, No Accessory Muscle Use, No Respiratory Distress Cardiovascular: Regular Rate, Rhythm, No Murmur Capillary Refill: Less Than 3 Seconds Skin: normal color, warm/dry Lactic Acid Level Laboratory Tests Test 01/23/23 19:05 Lactic Acid Level 1.35 MMOL/L (0.50-2.00) Within 3hrs of presentation: Admin fluids, Admin ABX, Blood cultures prior to ABX's, Focus exam, Lactate level Progress/Results/Core Measures Suspected Sepsis SIRS Temperature: Pulse: 102 Respiratory Rate: 22 Laboratory Tests 01/23/23 19:05: White Blood Count 8.9 Blood Pressure 146 /93 Mean: 110 01/23/23 19:05: Lactic Acid Level 1.35 Laboratory Tests 01/23/23 19:05: Creatinine 0.79, INR Comment 1.1, Platelet Count 255, Total Bilirubin 0.4 Results/Orders Lab Results Laboratory Tests Test 01/23/23 19:05 01/23/23 19:50 Range/Units White Blood Count 8.9 4.3-11.0 10^3/uL Red Blood Count 4.93 3.80-5.11 10^6/uL Hemoglobin 15.3 11.5-16.0 g/dL Hematocrit 46 35-52 % Mean Corpuscular Volume 93 80-99 fL Mean Corpuscular Hemoglobin 31 25-34 pg Mean Corpuscular Hemoglobin Concent 34 32-36 g/dL Red Cell Distribution Width 12.3 10.0-14.5 % Platelet Count 255 130-400 10^3/uL Mean Platelet Volume 10.1 9.0-12.2 fL Immature Granulocyte % (Auto) 0 % Neutrophils (%) (Auto) 59 42-75 % Lymphocytes (%) (Auto) 27 12-44 % Monocytes (%) (Auto) 7 0-12 % Eosinophils (%) (Auto) 6 0-10 % Basophils (%) (Auto) 1 0-10 % Neutrophils # (Auto) 5.2 1.8-7.8 10^3/uL Lymphocytes # (Auto) 2.4 1.0-4.0 10^3/uL Monocytes # (Auto) 0.6 0.0-1.0 10^3/uL Eosinophils # (Auto) 0.6 H 0.0-0.3 10^3/uL Basophils # (Auto) 0.1 0.0-0.1 10^3/uL Immature Granulocyte # (Auto) 0.0 0.0-0.1 10^3/uL Erythrocyte Sedimentation Rate 6 0-30 MM/HR Prothrombin Time 14.2 12.2-14.7 SEC INR Comment 1.1 0.8-1.4 Activated Partial Thromboplast Time 31 24-35 SEC D-Dimer <= 0.27 0.00-0.49 UG/ML Sodium Level 140 135-145 MMOL/L Potassium Level 4.0 3.6-5.0 MMOL/L Chloride Level 106 98-107 MMOL/L Carbon Dioxide Level 21 21-32 MMOL/L Anion Gap 13 5-14 MMOL/L Blood Urea Nitrogen 6 L 7-18 MG/DL Creatinine 0.79 0.60-1.30 MG/DL Estimat Glomerular Filtration Rate 91 BUN/Creatinine Ratio 8 Glucose Level 95 70-105 MG/DL Lactic Acid Level 1.35 0.50-2.00 MMOL/L Calcium Level 9.4 8.5-10.1 MG/DL Corrected Calcium 9.3 8.5-10.1 MG/DL Magnesium Level 2.0 1.6-2.4 MG/DL Total Bilirubin 0.4 0.1-1.0 MG/DL Aspartate Amino Transf (AST/SGOT) 19 5-34 U/L Alanine Aminotransferase (ALT/SGPT) 11 0-55 U/L Alkaline Phosphatase 89 40-136 U/L Total Creatine Kinase 351 H 29-168 U/L Creatine Kinase MB 7.8 *H <6.6 NG/ML Troponin I < 0.028 <0.028 NG/ML C-Reactive Protein High Sensitivity 0.33 0.00-0.50 MG/DL B-Type Natriuretic Peptide 54.4 <100.0 PG/ML Total Protein 6.7 6.4-8.2 GM/DL Albumin 4.1 3.2-4.5 GM/DL Influenza Type A (RT-PCR) Not Detected Not Detecte Influenza Type B (RT-PCR) Not Detected Not Detecte SARS-CoV-2 RNA (RT-PCR) Not Detected Not Detecte My Orders Orders - DIA HICKMAN DO Chest 1 View, Ap/Pa Only (01/23/23 18:45) Ekg Tracing (01/23/23 18:45) O2 (01/23/23 18:45) Monitor-Rhythm Ecg Trace Only (01/23/23 18:45) Bnp Moi (01/23/23 18:45) Cbc With Automated Diff (01/23/23 18:45) Comprehensive Metabolic Panel (01/23/23 18:45) Creatine Kinase (01/23/23 18:45) Creatine Kinase Mb (01/23/23 18:45) Hs C Reactive Protein (01/23/23 18:45) Fibrin Degradation Products (01/23/23 18:45) Lactic Acid Analyzer (01/23/23 18:45) Magnesium (01/23/23 18:45) Protime With Inr (01/23/23 18:45) Partial Thromboplastin Time (01/23/23 18:45) Erythrocyte Sedimentation Rate (01/23/23 18:45) Troponin I [place] (01/23/23 18:45) Covid 19 Inhouse Test (01/23/23 18:45) Ed Iv/Invasive Line Start (01/23/23 18:45) Lactated Ringers (Lr 1000 Ml Iv Solution (01/23/23 18:45) Albuterol Pre-Mix Nebs (Rt) (Proventil (01/23/23 18:45) Albuterol/Ipra Inhalation Soln (Duoneb I (01/23/23 18:45) Dexamethasone Injection (Decadron Injec (01/23/23 18:45) Rt Request For Service (01/23/23 18:45) Methylprednisolone Sod Succ (Solu-Medrol (01/23/23 18:45) Blood Culture (01/23/23 18:45) Sputum Culture (01/23/23 18:45) Ed Iv/Invasive Line Start (01/23/23 18:45) Ed Iv/Invasive Line Start (01/23/23 18:45) Vital Signs Adult Sepsis Patie Q15M (01/23/23 18:45) O2 (01/23/23 18:45) Remove Rings In Anticipation O (01/23/23 18:45) Cefepime Injection (Maxipime Injection) (01/23/23 18:45) Influenza A And B By Pcr (01/23/23 18:45) Isolation Central Supply Req (01/23/23 18:45) Svn Small Volume Nebulizer (01/23/23 18:45) Svn Small Volume Nebulizer (01/23/23 18:45) Medications Given in ED Current Medications Medications Dose Ordered Sig/Yahir Route Start Time Stop Time Status Last Admin Dose Admin Albuterol/ Ipratropium 3 ml ONCE ONCE INH 01/23/23 18:45 01/23/23 18:49 DC 01/23/23 19:36 3 ML Cefepime HCl 1000 mg/Sodium Chloride 50 ml @ 100 mls/hr ONCE ONCE IV 01/23/23 18:45 01/23/23 19:14 DC 01/23/23 20:15 100 MLS/HR Dexamethasone Sodium Phosphate 20 mg ONCE ONCE IH 01/23/23 18:45 01/23/23 18:49 DC 01/23/23 19:37 20 MG Lactated Ringer's 1,000 ml @ 0 mls/hr Q0M ONCE IV 01/23/23 18:45 01/23/23 18:49 DC 01/23/23 19:06 0 MLS/HR Vital Signs/I&O 01/23/23 01/23/23 01/23/23 01/23/23 18:34 18:34 18:45 19:37 Temp 36.8 Pulse 102 Resp 22 B/P (MAP) 146/93 (110) Pulse Ox 95 97 98 O2 Delivery Room Air Room Air Nasal Cannula O2 Flow Rate 2.00 2.00 01/23/23 20:55 Pulse 101 Resp 23 B/P (MAP) 150/92 Pulse Ox 94 O2 Delivery Room Air 01/24/23 00:00 Intake Total 1000 ml Balance 1000 ml Capillary Refill : Less Than 3 Seconds Blood Pressure Mean: 110 Progress Note : Progress Note PLACED IN ISOLATION ROOM FULL PPE WORN COVID AND FLU TESTING DONE SEPSIS PROTOCOL INITIATED O2 SATS 91% ON ROOM AIR ON ARRIVAL, PLACED ON O2 AT 2L/NC--O2 SATS UP TO 94% GIVEN: -IV FLUIDS -SOLU-MEDROL -HOUR LONG NEB TX WITH DECADRON, ALBUTEROL, ATROVENT FEELS MUCH BETTER, ABLE TO LAY DOWN, NO COUGH, O2 SATS 95-96% ON ROOM AIR NO DETERIORATION IN PT'S CONDITION DURING ER STAY VITALS STABLE NO HYPOXIA NO FEVER DISCUSSED MAINTENANCE VS RESCUE INHALERS PT STATES AT DISMISSAL SHE WAS PRESCRIBED BREZTRI A FEW MONTHS AGO, BUT UNABLE TO GET PRESCRIPTION DUE TO COST--SHE HAS NOT DISCUSSED THIS WITH HER AT [facility] SPACER SENT HOME WITH PT AND INSTRUCTED ON USE. REVIEWED PRIOR RECORDS, INCLUDING ER VISITS--MANY FOR RESPIRATORY COMPLAINTS, ADMITS/H&P'S/CONSULTS/DISCHARGE SUMMARIES, TESTS/PROCEDURES. ECG Initial ECG Impression Date: Jan 23, 2023 Initial ECG Impression Time: 19:01 Initial ECG Rate: 81 Initial ECG Rhythm: Normal Sinus Initial ECG Intervals: Normal Initial ECG Impression: Nonspecific Changes Comment INTERPRETED BY ME Diagnostic Imaging Comments CXR--PER RADIOLOGIST REPORT AT 1935 FINDINGS: Single frontal view of the chest demonstrates normal heart size and pulmonary vascularity. The lungs are well aerated and clear. No large pleural effusion or pneumothorax is seen. The visualized osseous structures show no acute abnormalities. IMPRESSION: 1. No acute cardiopulmonary process. Reviewed: Reviewed by Me Departure Impression Primary Impression: Acute bronchitis Additional Impressions: COPD exacerbation Smoker Disposition: HOME, SELF-CARE Condition: Improved Departure-Patient Inst. Decision time for Depature: 20:40 Referrals: YADY HUERTAS MD (PCP/Family) Primary Care Physician Patient Instructions: COPD Exacerbation, Adult ED, How to Use a Spacer, Quitting Smoking ED, Acute Bronchitis, Adult (DC) Add. Discharge Instructions: HOME, REST TYLENOL AND MOTRIN NEEDED FOR PAIN OR FEVER USE YOUR ALBUTEROL INHALER OR NEBULIZER ( DO NOT USE BOTH ) EVERY 4 HOURS NEEDED USE YOUR INHALER WITH A SPACER AT ALL TIMES NO SMOKING FOLLOW UP WITH [facility] IN 3-4 DAYS FOR FURTHER CARE RETURN TO ER IF SYMPTOMS WORSEN All discharge instructions reviewed with patient and/or family. Voiced understanding. Scripts Guaifenesin/Dextromethorphan (Mucinex Dm ER 1,200-60 mg Tab) 1,200 Mg-60 Mg Tbmp.12hr 1 EACH PO BID, #20 EA Prov: DIA HICKMAN DO 01/23/23 Benzonatate (TESSALON PERLES) 100 Mg Capsule 200 MG PO TID, #50 CAP Prov: DIA HICKMAN DO 01/23/23 Budesonide (Pulmicort) 1 Mg/2 Ml Ampul.neb 1 MG IH BID, #1 EA Prov: CHRISTIAN HICKMANA K DO 01/23/23 Methylprednisolone (Medrol) 4 Mg Tab.ds.pk 4 MG PO UD for 6 Days, #21 PKG PER DOSE PACK INSTRUCTIONS Prov: DIA HICKMAN DO 01/23/23 Azithromycin (Zithromax) 500 Mg Tablet 500 MG PO DAILY for 5 Days, #5 TAB Prov: DIA HICKMAN DO 01/23/23 Cefdinir (Cefdinir) 300 Mg Capsule 300 MG PO BID, #20 CAP Prov: DIA HICKMAN DO 01/23/23 Work/School Note: Work Release Form Date Seen in the Emergency Department: Jan 23, 2023 Return to Work: January 29, 2023 DIA HICKMAN DO Jan 23, 2023 19:01
[2023-01-23 19:21] LABS: BASOPHILS # (AUTO) 0.1 10^3/uL (0.0-0.1); BASOPHILS % (AUTO) 1 % (0-10); EOSINOPHILS # (AUTO) 0.6 10^3/uL (0.0-0.3); EOSINOPHILS % (AUTO) 6 % (0-10); HEMATOCRIT 46 % (35-52); HEMOGLOBIN 15.3 g/dL (11.5-16.0); LYMPHOCYTES # (AUTO) 2.4 10^3/uL (1.0-4.0); LYMPHOCYTES % (AUTO) 27 % (12-44); MEAN CORPUSCULAR HEMOGLOBIN 31 pg (25-34); MEAN CORPUSCULAR HGB CONC 34 g/dL (32-36); MEAN CORPUSCULAR VOLUME 93 fL (80-99); MEAN PLATELET VOLUME 10.1 fL (9.0-12.2); MONOCYTES # (AUTO) 0.6 10^3/uL (0.0-1.0); MONOCYTES % (AUTO) 7 % (0-12); NEUTROPHILS # (AUTO) 5.2 10^3/uL (1.8-7.8); NEUTROPHILS % (AUTO) 59 % (42-75); PLATELET COUNT 255 10^3/uL (130-400); WHITE BLOOD COUNT 8.9 10^3/uL (4.3-11.0)
--- NOTE | 2023-01-23 19:30 | Diagnostic Imaging Report ---
INDICATION: FEVER, COUGH, DYSPNEA COMPARISON: 03/26/2022 FINDINGS: Single frontal view of the chest demonstrates normal heart size and pulmonary vascularity. The lungs are well aerated and clear. No large pleural effusion or pneumothorax is seen. The visualized osseous structures show no acute abnormalities. IMPRESSION: 1. No acute cardiopulmonary process. Dictated by: Dictated on workstation # [id number]
[2023-01-23 19:33] LABS: ALBUMIN 4.1 GM/DL (3.2-4.5); CHLORIDE 106 MMOL/L (98-107); SODIUM 140 MMOL/L (135-145)
[2023-01-23 19:34] LABS: CALCIUM 9.4 MG/DL (8.5-10.1)
[2023-01-23 19:36] LABS: GLUCOSE 95 MG/DL (70-105); TOTAL PROTEIN 6.7 GM/DL (6.4-8.2)
[2023-01-23 19:37] LABS: BILIRUBIN,TOTAL 0.4 MG/DL (0.1-1.0); CARBON DIOXIDE 21 MMOL/L (21-32)
[2023-01-23 19:39] LABS: ALKALINE PHOSPHATASE 89 U/L (40-136)
[2023-01-23 19:40] LABS: CREATININE SERUM 0.79 MG/DL (0.60-1.30); ERYTHROCYTE SEDIMENTATION RATE 6 MM/HR (0-30); GFR ESTIMATED 91
[2023-01-23 19:41] LABS: BUN/CREATININE RATIO 8
[2023-01-23 19:42] LABS: ALANINE AMINOTRANSFERASE 11 U/L (0-55)
[2023-01-23 19:43] LABS: CREATINE KINASE 351 U/L (29-168)
[2023-01-23 19:46] LABS: FIBRIN DEGRADATION PRODUCTS <= 0.27 UG/ML (0.00-0.49); INR 1.1 (0.8-1.4); PARTIAL THROMBOPLASTIN TIME 31 SEC (24-35); PROTHROMBIN TIME PATIENT 14.2 SEC (12.2-14.7)
[2023-01-23 20:05] LABS: CREATINE KINASE MB 7.8 NG/ML (<6.6)
[2023-01-23] MEDS ORDERED: CEFD300C3 PO (20:44)
[2023-01-23] MEDS ORDERED: BENZ100C18 PO (20:44)
[2023-01-23] MEDS ORDERED: BUDE1AMP IH (20:44)
[2023-01-23] MEDS ORDERED: AZIT500T PO (20:44)
[2023-01-23] MEDS ORDERED: METH4TAB PO (20:44)
[2023-01-23] MEDS ORDERED: GUAI1TBM19 PO (20:44)
[2023-01-23 20:55] VITALS: BP 150/92
== END 2023-01-23 20:55 | disposition home or self-care (01) ==
LOC: EDUNIT# 18:29 → ER 18:31
DX: J20.9 Acute bronchitis, unspecified (principal); J44.1 Chronic obstructive pulmonary disease with (acute) exacerbation; F17.210 Nicotine dependence, cigarettes, uncomplicated; Z20.822 Contact with and (suspected) exposure to COVID-19; Z99.81 Dependence on supplemental oxygen
CPT/HCPCS: 36415; 71045; 80053; 82550; 82553; 83605; 83735; 83880; 84484; 85025; 85379; 85610; 85652; 85730; 86141; 87040; 87636; 93005; 94640; 94664